=== PATIENT | female | born 1975 | race Caucasian/White ===

== ENCOUNTER → 2019-05-07 | Outpatient (CLI) | payer OTHER ==
--- NOTE | 2019-05-08 18:29 | RADIOLOGY REPORT (SQ) ---
EXAM DESCRIPTION: PET CT SKULL/THIGH COMPLETED DATE/TIME: 05/08/2019 12:57 am REASON FOR STUDY: (C50.912)MALIGNANT NEOPLASM OF UNSPECIFIED SITE OF LEFT FEMALE BREAST C50.912 MAL IGNANT NEOPLASM OF UNSPECIFIED SITE OF LEFT FEMAL COMPARISON: Ultrasound-guided core breast biopsy 04/03/2019 RADIONUCLIDE AND DOSE: 11.9 mCi F18 FDG The route of agent administration: Intravenous FASTING BLOOD SUGAR: 95 mg/dl CONTRAST TYPE AND DOSE: No CT contrast given. TECHNIQUE: Blood glucose level was verified. Above dose of FDG was injected intravenously. 2-D seg mented attenuation correction images were obtained from the base of the skull to the midthighs. Nonc ontrast CT images were obtained for attenuation correction and fusion with emission images. CT image s were performed without oral or intravenous contrast and are not sensitive for parenchymal lesions. A series of overlapping emission PET images were obtained. Images reviewed and manipulated at [facility] work station by the radiologist. Images stored on PACS. LIMITATIONS: None. FINDINGS: HEAD AND NECK: No areas of abnormal metabolic activity in the soft tissues of the head and neck. CHEST: In the upper inner quadrant left breast, a hypermetabolic subcentimeter breast mass with biop sy clip is present, SUV 6.0. No other metabolically active breast lesions. No adenopathy. ABDOMEN AND PELVIS: No areas of abnormal metabolic activity in the abdomen or pelvis. Expected physi ologic activity is present in the genitourinary system and bowel. PROXIMAL LOWER EXTREMITIES: No areas of abnormal metabolic activity in the soft tissues of the lower extremities. BONES: No abnormal metabolic activity in the visualized skeleton. ADDITIONAL CT FINDINGS: Right-sided permanent central line tip superior vena cava. Bilateral breast implants. IUD in the uterus. OTHER: Blood pool background activity 1.5 SUV. Liver background activity 2.1 SUV. IMPRESSION: Solitary hypermetabolic left breast mass. No PET-CT evidence of metastatic disease TECHNICAL DOCUMENTATION: JOB ID: [id number]- All Rights Reserved Reading location - IP/workstation name: [email or web address]
== END ==
LOC: RAD 17:15
PROVIDERS: ATTEND Physician Assistant
DX: C50.212 Malignant neoplasm of upper-inner quadrant of left female breast (principal); Z98.82 Breast implant status
CPT/HCPCS: 78815; A9552

== ENCOUNTER → 2019-05-08 | Outpatient (CLI) | payer OTHER ==
--- NOTE | 2019-05-08 16:04 | RADIOLOGY REPORT (SQ) ---
EXAM DESCRIPTION: NM MUGA REST COMPLETED DATE/TIME: 05/08/2019 3:33 pm REASON FOR STUDY: ENCTF FOR R/U EXAM AFTER COMPLETED TX FOR MALIGNANT NEOPLASM (Z08) Z08 ENCNTR FOR FOLLOW-UP EXAM AFTER TRTMT FOR MALIGNANT NEOP COMPARISON: None. RADIONUCLIDE AND DOSE: 27.4 mCi technetium 99m labeled red blood cells The route of agent administration: Intravenous TECHNIQUE: Following administration of the radionuclide, gated images of the heart are obtained in t hree projections. Left ventricular functional analysis performed. LIMITATIONS: None. FINDINGS: LEFT VENTRICULAR FUNCTION: EJECTION FRACTION: 73%. END-DIASTOLIC VOLUME: 84 mL. END-SYSTOLIC VOLUME: 14 mL. WALL MOTION: No focal wall motion abnormalities. OTHER: No other significant finding. IMPRESSION: NORMAL CARDIAC MUGA STUDY. NORMAL LEFT VENTRICULAR FUNCTION WITH VALUES ABOVE. TECHNICAL DOCUMENTATION: JOB ID: [id number] [employer]- All Rights Reserved Reading location - IP/workstation name: [email or web address]
== END ==
LOC: RAD 13:52
PROVIDERS: ATTEND Internal Medicine Hematology & Oncology
DX: Z08 Encounter for follow-up examination after completed treatment for malignant neoplasm (principal); Z51.11 Encounter for antineoplastic chemotherapy
CPT/HCPCS: 78472; A9560; Q9969

== ENCOUNTER → 2019-11-17 | Outpatient (CLI) | payer OTHER | LOC: OD 14:39 | PROVIDERS: ATTEND Radiology Radiation Oncology | DX: C50.912 Malignant neoplasm of unspecified site of left female breast (principal) | CPT/HCPCS: 36415; 84703 ==